=== PATIENT | male | born 1955 | race Caucasian/White ===

== ENCOUNTER 2017-06-01 08:45 | Day surgery (SDC) | payer MEDICARE ==
[2017-05-31 10:29] LABS: HEMATOCRIT 47.1 % (42.0-54.0); MCH 29.8 pg (26.0-34.0); MCV 87.7 fL (80.0-100.0); RBC 5.37 10x6/uL (4.20-6.10); WBC 8.5 10x3/uL (4.8-10.8)
[2017-05-31 10:37] LABS: ANION GAP 11.3 mmol/L (8-16); CALCIUM 8.9 mg/dL (8.5-10.1); CARBON DIOXIDE 27.9 mmol/L (21.0-32.0); CREATININE - SERUM 1.4 mg/dL (0.6-1.3); POTASSIUM - SERUM 4.2 mmol/L (3.5-5.1)
[~2017-06-01] VITALS: Ht 180.3 cm; Wt 84.8 kg
--- NOTE | ~2017-06-01 | OP ---
PATIENT NAME: STACY FOWLER MEDICAL RECORD: [id number] :59 LOCATION:[facility] ADMISSION DATE: SURGEON: STUART KOCH MD DATE OF OPERATION: 06/01/2017 SURGEON: Stuart Koch MD ANESTHESIA: TIVA by Abdi Biggs CRNA. PREOPERATIVE DIAGNOSES: Elevated PSA of 271.9, abnormal digital rectal examination with a nodule on the left apex of the prostate. PROCEDURE: Transrectal ultrasound and prostate biopsy. FINDINGS: A 36-gram prostate with large numbers of intraprostatic stones seen. No hypoechoic areas. SPECIMENS: Prostate biopsy cores. ESTIMATED BLOOD LOSS: Minimal. CLINICAL HISTORY: This is a 61-year-old male, who was referred by Dr. Whitaker with an elevated PSA of 271.9. This was on 04/08/2017. He does have quite significant problems voiding. He has urinary frequency every 20 minutes with urge incontinence. He has nocturia up times 5 per night. When he to void, he says that there is hesitancy in getting started and a slow urinary flow. He experiences postvoid dribbling and he feels that he is not fully empty. We did check his postvoid residual in the office and it was 0 mL. Family history is negative for prostate cancer. Rectal examination shows a moderate-sized prostate, close to 40 grams in size with a hard nodule on the left apex. He comes to have a prostate biopsy performed. HE IS ALLERGIC TO GABAPENTIN. He was given ampicillin-sulbactam 3 grams IV button and buckle maker to the OR. He has issues with right inguinal hernia as well as an umbilical hernia and a hemorrhoid that he would like to see general surgery for. I will make a referral for him next week. DESCRIPTION OF PROCEDURE: The patient was given IV sedation. He was placed in the dorsal lithotomy position. The transrectal ultrasound probe was placed. The prostate shows signs of large numbers of intraprostatic stones. No hypoechoic areas were seen. Prostatic size measurements were obtained and it was estimated to be 36 grams in size. Sextant biopsies were obtained with at least 3 cores from each sextant. We took quite a few more cores on the left apical area. Once all the specimens were obtained, the patient was awakened and brought to the preoperative holding area. I will see him next week in followup to review the pathology results with him. We will also schedule an appointment for him with general surgery next week. TRANSINT:[id number] Voice Confirmation ID: [id number] DOCUMENT ID: [id number] OPERATIVE REPORT [id number] STACY FOWLER ROBERT S MD at 1422 CC: [id number] DICTATION DATE: 06/01/17 1203 [employer] ADMINISTRATOR: 06/01/17 [address] [place] [address]
[~2017-06-01 08:45] MED LIST: BUMEX 1 MG TAB1 MG PO; CENTRUM MEN'S1 EACH PO; CITRACAL + D E1 EACH PO; CLEOCIN HCL300 MG PO; CRANBERRY 400 M1 TA1 PO; DOLOPHINE HCL10 MG PO; DOXYCYCLINE HY100 M2 PO; ELIQUIS5 MG PO; FISH OIL 1,2001 CAP PO; FLOMAX0.4 MG PO; GLUCOPHAGE500 MG PO; LASIX20 MG PO; LISINOPRIL10 MG PO; PREDNISONE10 MG PO; PREDNISONE5 MG PO; VITAMIN B COMPL1 TAB PO; VITAMIN C1000 MG PO; ZOCOR10 MG PO
[2017-06-01 09:01] VITALS: BP 101/62; Ht 180.3 cm; Wt 84.8 kg
== END 2017-06-01 13:10 | disposition home or self-care (01) ==
LOC: D.OPS 08:45
PROVIDERS: Anesthesiology
DX: R97.20 Elevated prostate specific antigen [PSA] (principal); N40.2 Nodular prostate without lower urinary tract symptoms; F17.200 Nicotine dependence, unspecified, uncomplicated; I10 Essential (primary) hypertension; E11.9 Type 2 diabetes mellitus without complications; J43.9 Emphysema, unspecified; Z01.812 Encounter for preprocedural laboratory examination

== ENCOUNTER → 2017-06-15 10:00 | Outpatient (CLI) | payer MEDICARE ==
[2017-06-01 09:01] VITALS: BMI 26.1
== END | disposition home or self-care (01) ==
LOC: D.NM 10:00
DX: C61 Malignant neoplasm of prostate (principal)